=== PATIENT | female | born 1995 | race Two or more races ===

== ENCOUNTER 2018-10-17 14:58 | Emergency (ER) | payer OTHER ==
[~2018-10-17] VITALS: Ht 167.6 cm; Wt 83.0 kg
[2018-10-17] MEDS ORDERED: PRENATABS FA T1 EACH (15:11)
== END 2018-10-17 18:59 | disposition home or self-care (01) ==
LOC: ER 14:58
DX: B34.9 Viral infection, unspecified (principal)

== ENCOUNTER 2019-03-30 08:45 | Inpatient (IN) | payer OTHER ==
[~2019-03-30] VITALS: Ht 167.6 cm; Wt 4.1 kg
[~2019-03-30 08:45] MED LIST: PRENATABS FA T1 EACH
== END 2019-04-04 13:15 | disposition home or self-care (01) | DRG 788 ==
LOC: OB/GYN 08:45 → O/R 04-01 06:46 → OB/GYN 04-01 06:46
PROVIDERS: ADMIT Obstetrics & Gynecology
PROC: 4A1HXCZ Monitoring of Products of Conception, Cardiac Rate, External Approach (ICD-10-PCS; 2019-04-01)
PROC: 4A033R1 Measurement of Arterial Saturation, Peripheral, Percutaneous Approach (ICD-10-PCS; 2019-04-01)
PROC: 10D00Z1 Extraction of Products of Conception, Low, Open Approach (ICD-10-PCS; principal; 2019-04-01 11:00)
DX: O82 Encounter for cesarean delivery without indication (principal); O34.211 Maternal care for low transverse scar from previous cesarean delivery; O36.63X0 Maternal care for excessive fetal growth, third trimester, not applicable or unspecified; Z3A.39 39 weeks gestation of pregnancy; Z37.0 Single live birth